=== PATIENT | female | born 1985 | race African-American/Black ===

== ENCOUNTER 2017-03-20 15:42 | Emergency (ER) | payer MEDICAID ==
[~2017-03-20] VITALS: Ht 170.2 cm; Wt 84.4 kg
[~2017-03-20 15:42] MED LIST: ALBUTEROL2.5 MG/3 M INH; BENADRYL25 MG ORAL; PREDNISONE20 MG ORAL; Q-TUSSIN100 MG/5 M PO; ZANTAC150 MG ORAL; ZOFRAN4 M3 ORAL
[2017-03-20 16:31] VITALS: BP 136/81
--- NOTE | 2017-03-20 16:38 | Emergency Room Report ---
History of Present Illness General Chief Complaint: Vaginal Source: Patient Present Illness HPI Patient 31 female presented after increased vaginal discharge for approximately 2 weeks. Patient reported having increased white discharge. She had increased lower bowel pain. She not been vomiting. Patient stated that she had a previous episode of gonorrhea which she was treated with antibiotics. She denied any fever. She reported having increased pain with intercourse. Patient denied any fever. She she denies being Allergies: Coded Allergies: No Known Allergies (Unverified , 04/27/14) Patient History Past Medical History: see triage record Last Menstrual Period: february Now: No Reviewed Nursing Documentation: PMH: Agreed, PSxH: Agreed Nursing Documentation-PMH Past Medical History: No History, Except For Hx Asthma: No - BRONCHITIS Review of Systems All Other Systems: negative except mentioned in HPI Physical Exam Vital Signs Date Time Temp Pulse Resp B/P Pulse Ox O2 Delivery O2 Flow Rate FiO2 03/20/17 15:56 98.2 116 20 136/81 98 Room Air Sp02 EP Interpretation: reviewed, normal General Appearance: normal inspection, well appearing, no apparent distress, alert, GCS 15, non-toxic Head: normocephalic, atraumatic ENT: normal ENT inspection, hearing grossly normal, normal voice Neck: normal inspection, full range of motion, supple, no bony tend Respiratory: normal inspection, lungs clear, normal breath sounds, no respiratory distress, no retraction, no wheezing Cardiovascular #1: regular rate, rhythm, no edema Gastrointestinal: normal inspection, normal bowel sounds, non tender, soft, no guarding, no hernia Genitourinary: no CVA tenderness, ext genitalia/vag normal Musculoskeletal: normal inspection, back normal, normal range of motion Neurologic: normal inspection, alert, oriented x3, responsive, speech normal Psychiatric: normal inspection, judgement/insight normal, mood/affect normal Skin: normal inspection, normal color, no rash Medical Decision Making Diagnostic Impression: Primary Impression: Abdominal pain Additional Impressions: Vaginal discharge Trichomonas infection Bacterial vaginosis ER Course Patient presented for vaginal discharge. Differential diagnosis included was not limited to , gonorrhea, bacterial vaginosis, yeast infection, among others. The patient was empirically treated for gonorrhea. Patient was advised STD testing outpatient. Wet mount showed Trichomonas as well as clue cells. Patient was given Flagyl by mouth. She's also given a procedure MetroGel and advised to have her partner also tested The patient is advised to follow up with primary care doctor in 1-2 days for further STD testing. Patient is advised to return if any worsening condition or if any changes in status that are concerning. Laboratory Tests Test 03/20/17 16:00 Urine Color Yellow Urine Appearance Slightly cloudy Urine pH 6 (4.5-8.0) Urine Specific [place] 1.015 (1.005-1.035) Urine Protein 1+ (NEGATIVE) H Urine Glucose (UA) Negative (NEGATIVE) Urine Ketones Negative (NEGATIVE) Urine Occult Blood 1+ (NEGATIVE) H Urine Nitrite Negative (NEGATIVE) Urine Bilirubin Negative (NEGATIVE) Urine Urobilinogen Normal MG/DL (0.0-1.0) Urine Leukocyte Esterase 3+ (NEGATIVE) H Urine RBC 0-2 /HPF (0 - 2) Urine WBC 5-10 /HPF (0 - 2) H Urine Squamous Epithelial Cells Many /LPF (NONE/OCC) H Urine Bacteria Many /HPF (NONE) H Urine HCG, Qualitative Negative Microbiology Date/Time Source Procedure Growth Status 03/20/17 16:00 Vaginal Wet Prep - Final Complete Last Vital Signs Date Time Temp Pulse Resp B/P Pulse Ox O2 Delivery O2 Flow Rate FiO2 03/20/17 16:31 98.2 72 20 136/81 98 Room Air Status: improved Disposition: HOME, SELF-CARE Condition: Stable Scripts Doxycycline Monohydrate* (DOXYCYCLINE MONOHYDRATE*) 100 Mg Capsule 100 MG ORAL Q12H, #14 CAP 0 Refills Prov: Richie Gunter 03/20/17 Metronidazole* (METROGEL-VAGINAL*) 70 Gm Gel.w.appl 1 APPL VAGIN EVERY 12 HOURS for 7 Days, #70 GM Prov: Richie Gunter 03/20/17 Richie Gunter Mar 20, 2017 16:38
[2017-03-20 17:11] LABS: APPEARANCE,URINE SLIGHTLY CLOUDY; KETONES,URINE NEGATIVE (NEGATIVE); LEUKOCYTE ESTERASE ,URINE 3+ (NEGATIVE); NITRITE,URINE NEGATIVE (NEGATIVE); PH,URINE 6 (4.5-8.0); PROTEIN,URINE 1+ (NEGATIVE); UROBILINOGEN,URINE NORMAL MG/DL (0.0-1.0)
[2017-03-20] MEDS ORDERED: METROGEL-VAGINA70 G1 VAGIN (17:16)
[2017-03-20 17:19] LABS: RBC,URINE 0-2 /HPF (0 - 2)
[2017-03-20 17:20] LABS: BACTERIA,URINE MANY /HPF; SQUAMOUS EPITHELIAL CELL,UR MANY /LPF (NONE/OCC)
[2017-03-20] MEDS ORDERED: DOXYCYCLINE MO100 MG ORAL (17:20)
[2017-03-20] MEDS ORDERED: metroNIDAZOLE 500mg tab ORAL ONE (17:30)
[2017-03-20 18:28] VITALS: BP 127/79
[2017-03-20 18:30] VITALS: BP 127/79
== END 2017-03-20 18:00 | disposition home or self-care (01) ==
LOC: EMR 16:50
DX: N89.8 Other specified noninflammatory disorders of vagina (principal); R10.9 Unspecified abdominal pain; A59.01 Trichomonal vulvovaginitis; J45.909 Unspecified asthma, uncomplicated
CPT/HCPCS: 58999; 81003; 81025; 87086; 87210; 96372; 99284; J0696

== ENCOUNTER 2019-01-05 19:36 | Emergency (ER) | payer MEDICAID, OTHER ==
[~2019-01-05] VITALS: Ht 170.2 cm; Wt 88.5 kg
[~2019-01-05 19:36] MED LIST changes: +DOXYCYCLINE MO100 MG ORAL; +METROGEL-VAGINA70 G1 VAGIN
[2019-01-05 19:57] VITALS: BP 121/97
[2019-01-05] MEDS ORDERED: AUGMENTIN 875-1 EAC1 ORAL (20:01)
[2019-01-05] MEDS ORDERED: IBUPROFEN600 MG ORAL (20:01)
[2019-01-05] MEDS ORDERED: LORATADINE10 M2 PO (20:01)
[2019-01-05] MEDS ORDERED: FLUTICASONE PRO16 G1 NASAL (20:01)
[2019-01-05] MEDS ORDERED: MAPAP500 M2 PO (20:01)
--- NOTE | 2019-01-05 20:05 | NUR ---
ER Nurse Note: Pt came from home c/o difficulty breathing and swollowing, sore throat with coughing up thick yellow phlegm since 2 weeks. Pt has swollen lymph nodes on assessment; O2 at 100% RA. Pt has congestion. A&ox4, VSS, no signs of distress. Will continue to montior.
[2019-01-05] MEDS ORDERED: Lidocaine 2% Visc 15ml soln ORAL ONE (20:15)
[2019-01-05] MEDS ORDERED: Dexamethasone 4mg/ml vial IM ONE (20:15)
--- NOTE | 2019-01-05 20:19 | Emergency Room Report ---
History of Present Illness General Chief Complaint: Upper Respiratory Illness Source: Patient Present Illness HPI Patient presents with week of sore throat. She started taking amoxicillin 3 days ago. This was not prescribed to her during this illness. She has a change in her voice and has a lot of pain when she swallows. She is able to take down oral liquids. Her ears have been itching also, no change in hearing or pain. She's been using anti-allergy medications including Flonase and loratadine. She's felt feverish but not documented fever. There's no rashes or joint pain. She is coughing up a slight amount of phlegm but it seems more coming from her nose and is clear. There is no vomiting, diarrhea. Pain rated 10/10 burning in throat and worse when swallowing. No swelling noted in throat or neck. Slight headache. No neck stiffness. No rashes. H/O asthma, but denies wheezing or dyspnea. Not using her inhaler at this time. The patient also has spotting at this time. She last took Depo shot last April. She is not sure if she is , but does not believe so. No dysuria. Allergies: Coded Allergies: No Known Allergies (Unverified , 04/27/14) Patient History Past Medical History: see triage record Social History: Denies: smoking Social History Narrative not currently working Last Menstrual Period: SPOTTING Reviewed Nursing Documentation: PMH: Agreed; PSxH: Agreed Nursing Documentation-PMH Past Medical History: No History, Except For Review of Systems All Other Systems: negative except mentioned in HPI Physical Exam Vital Signs Date Time Temp Pulse Resp B/P (MAP) Pulse Ox O2 Delivery O2 Flow Rate FiO2 01/05/19 19:42 98.2 102 15 121/97 (105) 100 Room Air General Appearance: well appearing, no apparent distress, GCS 15, non-toxic Head: normocephalic, atraumatic Eyes: bilateral eye normal inspection, bilateral eye PERRL ENT: TMs + canals normal - no pinna tenderness, pharyngeal erythema, other - no [employer] T[employer]ER Neck: full range of motion, supple, no meningismus, other - no stridor Respiratory: lungs clear, normal breath sounds, no respiratory distress, speaking full sentences Cardiovascular #1: regular rate, rhythm Cardiovascular #2: 2+ radial (R) Gastrointestinal: normal inspection, normal bowel sounds, non tender, soft Musculoskeletal: back normal, digits/nails normal, normal range of motion Neurologic: alert, oriented x3, grossly normal Psychiatric: mood/affect normal Skin: no rash Medical Decision Making Diagnostic Impression: Primary Impression: Pharyngitis Qualified Codes: J02.9 - Acute pharyngitis, unspecified ER Course Patient presents with sore throat for weak with recent adding of amoxicillin. Differential includes strep, viral, partially treated pharyngitis amongst others. Exam excludes peritonsillar abscess. She'll be given a shot of Decadron and given viscous lidocaine to gargle with. She'll be continued on antibiotics at this time. In addition urinalysis and test will be checked. No evidence of dehydration at this time. UA neg. Patient still sig pain. IM morphine. Improved with treatment with decreased pain. Discussed treatment plan. Patient declines viscous lidocaine. Patient stable for outpatient observation and treatment. Laboratory Tests Test 01/05/19 20:08 Urine Color Pale yellow Urine Appearance Clear Urine pH 6.5 (4.5-8.0) Urine Specific [place] 1.015 (1.005-1.035) Urine Protein Negative (NEGATIVE) Urine Glucose (UA) Negative (NEGATIVE) Urine Ketones Negative (NEGATIVE) Urine Blood 1+ (NEGATIVE) H Urine Nitrite Negative (NEGATIVE) Urine Bilirubin Negative (NEGATIVE) Urine Urobilinogen Normal MG/DL (0.0-1.0) Urine Leukocyte Esterase 1+ (NEGATIVE) H Urine RBC 2-4 /HPF (0 - 2) H Urine WBC 2-4 /HPF (0 - 2) Urine Squamous Epithelial Cells Few /LPF (NONE/OCC) Urine Bacteria Few /HPF (NONE) Urine HCG, Qualitative Negative (NEGATIVE) Last Vital Signs Date Time Temp Pulse Resp B/P (MAP) Pulse Ox O2 Delivery O2 Flow Rate FiO2 01/05/19 22:51 88 18 120/74 97 Room Air 01/05/19 22:30 98.2 Status: improved Disposition: HOME, SELF-CARE Condition: Improved Scripts Hydrocodone Bit/Acetaminophen 5-325* (NORCO 5-325*) 1 Each Tablet 1 TAB ORAL Q6H PRN for For Pain, #8 TAB 0 Refills Prov: John Paul Bruno MD 01/05/19 Amoxicillin/Potassium Clav 500-125 Tablet* (AUGMENTIN 500-125 TABLET*) 1 Each Tablet 1 TAB ORAL THREE TIMES A DAY, #10 TAB Prov: John Paul Bruno MD 01/05/19 Referrals: [facility],REFERRING (PCP) John Paul Bruno MD January 05, 2019 20:19
[2019-01-05 20:32] LABS: APPEARANCE,URINE CLEAR; BILIRUBIN, URINE NEGATIVE (NEGATIVE); COLOR,URINE PALE YELLOW; GLUCOSE, URINE (UA) NEGATIVE (NEGATIVE); KETONES,URINE NEGATIVE (NEGATIVE); LEUKOCYTE ESTERASE ,URINE 1+ (NEGATIVE); NITRITE,URINE NEGATIVE (NEGATIVE); PH,URINE 6.5 (4.5-8.0); PROTEIN,URINE NEGATIVE (NEGATIVE); UROBILINOGEN,URINE NORMAL MG/DL (0.0-1.0)
[2019-01-05] MEDS ORDERED: Morphine Sulfate 2mg/ml Inj(IV/IM USE ONLY) IM ONE (21:15)
[2019-01-05] MEDS ORDERED: NORCO 5-325 TA1 EACH ORAL (21:56)
[2019-01-05] MEDS ORDERED: AUGMENTIN 500-1 EACH ORAL (21:56)
[2019-01-05 22:51] VITALS: BP 120/74
--- NOTE | 2019-01-05 23:00 | NUR ---
ER Nurse Note: All orders completed per ERMD orders. Pt seen, treated, medically cleared for discharge by ERMD. Discharge instructions and prescriptions given with repeat verbazliaion by pt. Instructed pt to follow up with primary care provider within one week. Pt a&ox4, VSS, no signs of distress; denies shortness of breath. ID band removed. Pt left with all belongings with steady gait via own transportation. Pt left with her sister.
== END 2019-01-05 23:00 | disposition home or self-care (01) ==
LOC: EMR 20:06
DX: J02.9 Acute pharyngitis, unspecified (principal)
CPT/HCPCS: 81003; 81025; 96372; 99283; J1100; J2270